=== PATIENT | male | born 1960 | race Native Hawaiian/Other Pacific Islander ===

== ENCOUNTER 2022-04-24 07:41 | Day surgery (SDC) | payer OTHER ==
[~2022-04-24] VITALS: Ht 177.8 cm; Wt 84.8 kg
[~2022-04-24 07:41] MED LIST: ALBIPROI INH; AMPDEX10CR PO; ASPI81CH PO; CLAR500CR PO; GABA400 PO; HYDGUAL120 PO; Loratadine10 MG PO; MELO7.5 PO; SILD25T PO
--- NOTE | 2022-04-24 08:51 | NUR ---
Ambulatory in Day Surgery History, Chart, Medications and Allergies reviewed before start of procedure. Lungs clear T/O to Auscultation. Pre-Op teaching done. Pt verbalizes understanding. Patient States Post-Procedure ride home has been arranged.
--- NOTE | 2022-04-24 12:00 | NUR ---
Patient up to Ambulate independently. Gait steady. Discharge instructions reviewed with patient. Patient verbalizes understanding. Copy given to patient to take home [facility]. Patient States Post-Procedure ride home has been arranged. Discharged via wheelchair to private car for ride home.
== END 2022-04-24 12:00 | disposition home or self-care (01) ==
LOC: ORSCMMR 07:41 → ORD 09:00 → ORSCMMR 12:00
PROVIDERS: Surgery
PROC: 0WUF0JZ Supplement Abdominal Wall with Synthetic Substitute, Open Approach (ICD-10-PCS; principal; 2022-04-24 09:00)
PROC: 0JBC0ZZ Excision of Pelvic Region Subcutaneous Tissue and Fascia, Open Approach (ICD-10-PCS; principal; 2022-04-24 09:00)
DX: K42.0 Umbilical hernia with obstruction, without gangrene (principal); D17.1 Benign lipomatous neoplasm of skin and subcutaneous tissue of trunk; Z87.891 Personal history of nicotine dependence; F90.9 Attention-deficit hyperactivity disorder, unspecified type; F43.10 Post-traumatic stress disorder, unspecified; F32.A Depression, unspecified; Z79.899 Other long term (current) drug therapy; Z79.82 Long term (current) use of aspirin
CPT/HCPCS: 88304; A9270; C1781; J0690; J1100; J1885; J2405; J2704; J2795; J3010; J7120

== ENCOUNTER 2024-10-24 07:09 | Day surgery (SDC) | payer OTHER ==
[~2024-10-24] VITALS: Ht 175.3 cm; Wt 82.8 kg
[~2024-10-24 07:09] MED LIST changes: +AMOCLA875 PO; +NS 500 ML IV ONE; +Sodium Bicarb 8.4% 1 MEQ/ML 50 ML Vial ONE
[2024-10-24] MEDS ORDERED: CeFAZolin Sodium 2,000 MG VIAL ONE (07:28)
[2024-10-24] MEDS ORDERED: AMPDEX15CR PO (07:45)
[2024-10-24] MEDS ORDERED: NS 500 ML IV ONE (07:45)
[2024-10-24] MEDS ORDERED: Adderall 20 MG20 MG PO (07:45)
[2024-10-24] MEDS ORDERED: propofoL 40 ML IV ONE (07:51)
[2024-10-24] MEDS ORDERED: FentaNYL Citrate 50 MCG/ML 2 ML Injection ONE (07:52)
--- NOTE | 2024-10-24 08:01 | NUR ---
10/24/24 0801 Taco Manley, BLOCK TIMEOUT [id number] BLOCK STARTED 0800
[2024-10-24 09:03] VITALS: BP 104/67
--- NOTE | 2024-10-24 09:26 | NUR ---
10/24/24 0926 Gale Li D/C INSTRUCTIONS GIVEN TO PT & PT'S , UNDERSTANDING VERBALIZED. PT LEAVING W/ ALL BELONGINGS HE CAME TO [facility] W/, INCLUDING ICE PACK. PT INSISTS ON AMBULATING OUT TO PRIVATE VEHICLE, NO ASSIST NEEDED & STEADY GAIT NOTED. PT DENIES PAIN/NAUSEA, TOLERATING PO. NO VISIBLE SIGNS OF DISTRESS NOTED.
== END 2024-10-24 09:26 | disposition home or self-care (01) ==
LOC: ORSCSDS 07:09
PROVIDERS: Orthopaedic Surgery
PROC: 0LN80ZZ Release Left Hand Tendon, Open Approach (ICD-10-PCS; principal; 2024-10-24 08:30)
DX: M65.312 Trigger thumb, left thumb (principal); M65.322 Trigger finger, left index finger; M65.342 Trigger finger, left ring finger; M65.352 Trigger finger, left little finger; F43.10 Post-traumatic stress disorder, unspecified; F32.A Depression, unspecified; F90.9 Attention-deficit hyperactivity disorder, unspecified type; Z87.891 Personal history of nicotine dependence; Z79.82 Long term (current) use of aspirin; Z79.899 Other long term (current) drug therapy
CPT/HCPCS: J0690; J2704; J3010; J7040

== ENCOUNTER 2024-11-24 09:11 | Day surgery (SDC) | payer OTHER ==
[~2024-11-24] VITALS: Ht 175.3 cm; Wt 83.8 kg
[~2024-11-24 09:11] MED LIST changes: +AMPDEX15CR PO; +Adderall 20 MG20 MG PO; +Lactated Ringer's 1,000 ML IV ONE; -NS 500 ML IV ONE; -Sodium Bicarb 8.4% 1 MEQ/ML 50 ML Vial ONE
[2024-11-24] MEDS ORDERED: Lactated Ringer's 1,000 ML IV ONE (10:00)
[2024-11-24] MEDS ORDERED: FentaNYL Citrate 50 MCG/ML 2 ML Injection ONE (10:17)
[2024-11-24] MEDS ORDERED: propofoL 40 ML IV ONE (10:17)
[2024-11-24] MEDS ORDERED: Lidocaine 1%-Epineph 1:100000 20 ML MDV INJ ONE (10:31)
[2024-11-24 10:53] VITALS: BP 107/64
== END 2024-11-24 11:20 | disposition home or self-care (01) ==
LOC: ORSCSDS 09:11
PROVIDERS: Orthopaedic Surgery
PROC: 0LN70ZZ Release Right Hand Tendon, Open Approach (ICD-10-PCS; principal; 2024-11-24 10:30)
DX: M65.311 Trigger thumb, right thumb (principal); M65.321 Trigger finger, right index finger; M65.341 Trigger finger, right ring finger; M65.351 Trigger finger, right little finger; M65.331 Trigger finger, right middle finger; F43.10 Post-traumatic stress disorder, unspecified; Z87.891 Personal history of nicotine dependence; Z79.82 Long term (current) use of aspirin; Z79.899 Other long term (current) drug therapy
CPT/HCPCS: J2704; J3010; J7120

== ENCOUNTER → 2025-08-02 | Outpatient (CLI) | payer OTHER ==
[~2025-08-02] MED LIST changes: -Lactated Ringer's 1,000 ML IV ONE
== END ==
LOC: LAB 17:14 → LAB SHORT 17:14
DX: L08.9 Local infection of the skin and subcutaneous tissue, unspecified (principal)
CPT/HCPCS: 87070; 87077; 87147; 87186; 87205